=== PATIENT | female | born 1985 | race Caucasian/White ===

== ENCOUNTER 2018-08-27 22:06 | Emergency (ER) | payer MEDICAID ==
--- NOTE | 2018-08-27 22:20 | EDPHY ---
H & P Stated Complaint: Abdominal Pain X 2 Days Time Seen by Provider: 08/27/18 22:20 HPI/ROS: HPI CHIEF COMPLAINT: Right upper quadrant abdominal pain HISTORY OF PRESENT ILLNESS: This is a 32-year-old female presents emergency room with right upper quadrant abdominal pain. Patient's states this started . Describes right upper quadrant sharp stabbing. Worse when she takes deep breath in. She does not have her gallbladder any further. Denies any lower abdominal pain. Denies chest pain. Denies shortness of breath. Does complain of right upper quadrant pain when she takes deep breath in. Wraps around to her right back. No fever. Past Medical History: No significant history Past Surgical History: Thyroidectomy, cholecystectomy, bladder surgery Social History: Denies drugs alcohol tobacco. Visiting from [place]. Family History: Noncontributory ROS REVIEW OF SYSTEMS: 10 Systems were reviewed and negative with the exception of the elements mentioned in the history of present illness. Exam Constitutional triage nursing summary reviewed, vital signs reviewed, awake/ alert. Eyes normal conjunctivae and sclera, EOMI, PERRLA. HENT normal inspection, atraumatic, moist mucus membranes, no epistaxis, neck supple/ no meningismus, no raccoon eyes. Respiratory clear to auscultation bilaterally, normal breath sounds, no respiratory distress, no wheezing. Cardiovascular rate normal, regular rhythm, no murmur, no edema, distal pulses normal. Gastrointestinal nontender palpation right upper quadrant,, no rebound, no guarding, normal bowel sounds, no distension, no pulsatile mass. Genitourinary no CVA tenderness. Musculoskeletal no midline vertebral tenderness, full range of motion, no calf swelling, no tenderness of extremities, no meningismus, good pulses, neurovascularly intact. Skin pink, warm, & dry, no rash, skin atraumatic. Neurologic awake, alert and oriented x 3, AAOx3, moves all 4 extremities equally, motor intact, sensory intact, CN II-XII intact, normal cerebellar, normal vision, normal speech. Psychiatric normal mood/affect. Heme/Lymph/Immune no lymphadenopathy. Differential Diagnosis: Differential diagnosis includes but is not limited to and in no particular order: Bowel obstruction, appendicitis, gallbladder disease, diverticulitis, colitis, enteritis, perforated viscus, gastritis, GERD , esophagitis, urinary tract infection, pyelonephritis, kidney stones, including PE Medical Decision Making: IV establishment IV fluid bolus IV Dilaudid 1 mg for pain control IV Zofran for nausea, chest x-ray, D-dimer, troponin, LFTs, lipase , and re-evaluate. Re-evaluation: ED x-ray chest one view negative for acute cardiopulmonary disease. Patient's troponin 0.00 D-dimer negative. Urinalysis reviewed CT scan abdomen pelvis with IV contrast faxed to me at 12:37 a.m. This shows few prominent fluid-filled loops of the jejunum in left lower quadrant without associated discrete transition point suspect flexed mild focal enteritis or ileus low-grade obstruction is unlikely. 2 point cm right ovarian cyst pelvic ultrasound be considered further evaluate as clinically warranted. 0223: I did go reexamine the patient this time the patient is resting here comfortably no acute distress. She is feeling better with IV fluids and pain medicine. I do not have a great explanation for right upper quadrant abdominal pain she has no lower abdominal pain. Patient's troponin was negative negative D-dimer urinalysis shows no acute infraction. CT scan abdomen pelvis with IV contrast does not show any evidence of acute right upper quadrant abdominal pain. Possibly enteritis or ileus however the patient does not have a diarrhea. 0246: Patient on re-examination still has right upper quadrant abdominal pain. Unclear etiology. Labs reviewed Patient is from out of town. Plan will be for hospital admission for abdominal pain, overnight hydration re- evaluation 0250: I gave the nargis luis the option of going home or being admitted overnight for observation given that she is from out of town has ongoing abdominal pain she would like to be admitted. She has no lower abdominal pain. Pain is located right upper quadrant Spoke with the hospitalist service Dr. Whatley agrees to admit. Source: Patient - Personal History LMP (Females 10-55): 1-7 Days Ago Current Tetanus/Diphtheria Vaccine: Yes Current Tetanus Diphtheria and Acellular Pertussis (TDAP): Yes Tetanus Vaccine Date: < 10 years - Medical/Surgical History Hx Asthma: No Hx Chronic Respiratory Disease: No Hx Diabetes: No Hx Cardiac Disease: No Hx Renal Disease: No Hx Cirrhosis: No Hx Alcoholism: No Hx HIV/AIDS: No Hx Splenectomy or Spleen Trauma: No Other PMH: choly, wisdom teeth extracted, breast implants and removal of same, thyroidectomy, lap procedure for edometriosis, cystocele repair - Social History Smoking Status: Former smoker Constitutional: Initial Vital Signs Temperature (C) 36.8 C 08/27/18 22:10 Heart Rate 69 08/27/18 22:10 Respiratory Rate 16 08/27/18 22:10 Blood Pressure 128/86 H 08/27/18 22:10 O2 Sat (%) 98 08/27/18 22:10 O2 Delivery Mode Room Air Allergies/Adverse Reactions: acetaminophen [From Lortab] Allergy (Verified 08/27/18 22:15) hydrocodone [From Lortab] Allergy (Verified 08/27/18 22:15) Influenza Virus Vaccines Allergy (Verified 08/27/18 22:15) Home Medications: Medication Instructions Recorded AMOXICILLIN 08/27/18 Levothyroxine 08/27/18 Valtrex 08/27/18 Medical Decision Making - Diagnostics Imaging Results: Imaging Impressions Chest X-Ray 08/27/18 22:25 Impression: 1. No acute pulmonary disease. 2. Consider chest two views when the patient's medical condition permits. - Data Points Laboratory Results: Laboratory Results 08/27/18 22:25 08/27/18 22:25 08/27/18 08/27/18 08/27/18 23:26 22:49 22:25 WBC RBC Hgb Hct MCV MCH MCHC RDW Plt Count MPV Neut % (Auto) Lymph % (Auto) [place] % (Auto) Eos % (Auto) Baso % (Auto) Nucleat RBC Rel Count Absolute Neuts (auto) Absolute Lymphs (auto) Absolute Monos (auto) Absolute Eos (auto) Absolute Basos (auto) Absolute Nucleated RBC Immature Gran % Immature Gran # D-Dimer VBG Lactic Acid Sodium Potassium Chloride Carbon Dioxide Anion Gap BUN Creatinine Estimated GFR Glucose Calcium Total Bilirubin Conjugated Bilirubin Unconjugated Bilirubin AST ALT Alkaline Phosphatase POC Troponin I 0.00 ng/mL ng/mL (0.00-0.08) Total Protein Albumin Lipase Beta HCG, Qual NEGATIVE Urine Color YELLOW Urine Appearance CLEAR Urine pH 7.0 (5.0-7.5) Ur Specific [place] 1.015 (1.002-1.030) Urine Protein NEGATIVE (NEGATIVE) Urine Ketones NEGATIVE (NEGATIVE) Urine Blood 1+ H (NEGATIVE) Urine Nitrate NEGATIVE (NEGATIVE) Urine Bilirubin NEGATIVE (NEGATIVE) Urine Urobilinogen NEGATIVE EU EU (0.2-1.0) Ur Leukocyte Esterase NEGATIVE (NEGATIVE) Urine RBC 1-3 /hpf /hpf (0-3) Urine WBC 0-1 /hpf /hpf (0-3) Ur Epithelial Cells TRACE /lpf /lpf (NONE-1+) Urine Bacteria TRACE /hpf H /hpf (NONE SEEN) Urine Mucus TRACE /lpf /lpf (NONE-1+) Urine Glucose NEGATIVE (NEGATIVE) 08/27/18 08/27/18 08/27/18 22:25 22:25 22:25 WBC 6.90 10^3/uL 10^3/uL (3.80-9.50) RBC 4.34 10^6/uL 10^6/uL (4.18-5.33) Hgb 14.1 g/dL g/dL (12.6-16.3) Hct 42.2 % % (38.0-47.0) MCV 97.2 fL fL (81.5-99.8) MCH 32.5 pg pg (27.9-34.1) MCHC 33.4 g/dL g/dL (32.4-36.7) RDW 13.0 % % (11.5-15.2) Plt Count 276 10^3/uL 10^3/uL (150-400) MPV 9.1 fL fL (8.7-11.7) Neut % (Auto) 31.5 % L % (39.3-74.2) Lymph % (Auto) 51.7 % H % (15.0-45.0) [place] % (Auto) 10.7 % % (4.5-13.0) Eos % (Auto) 5.4 % % (0.6-7.6) Baso % (Auto) 0.6 % % (0.3-1.7) Nucleat RBC Rel Count 0.0 % % (0.0-0.2) Absolute Neuts (auto) 2.17 10^3/uL 10^3/uL (1.70-6.50) Absolute Lymphs (auto) 3.57 10^3/uL H 10^3/uL (1.00-3.00) Absolute Monos (auto) 0.74 10^3/uL 10^3/uL (0.30-0.80) Absolute Eos (auto) 0.37 10^3/uL 10^3/uL (0.03-0.40) Absolute Basos (auto) 0.04 10^3/uL 10^3/uL (0.02-0.10) Absolute Nucleated RBC 0.00 10^3/uL 10^3/uL (0-0.01) Immature Gran % 0.1 % % (0.0-1.1) Immature Gran # 0.01 10^3/uL 10^3/uL (0.00-0.10) D-Dimer 0.29 ug/mLFEU ug/mLFEU (0.00-0.50) VBG Lactic Acid Sodium 139 mEq/L mEq/L (135-145) Potassium 3.9 mEq/L mEq/L (3.5-5.2) Chloride 107 mEq/L mEq/L (97-110) Carbon Dioxide 25 mEq/l mEq/l (22-31) Anion Gap 7 mEq/L mEq/L (6-14) BUN 14 mg/dL mg/dL (7-23) Creatinine 0.9 mg/dL mg/dL (0.6-1.0) Estimated GFR > 60 Glucose 80 mg/dL mg/dL (70-100) Calcium 9.5 mg/dL mg/dL (8.5-10.4) Total Bilirubin 0.3 mg/dL mg/dL (0.1-1.4) Conjugated Bilirubin 0.3 mg/dL mg/dL (0.0-0.5) Unconjugated Bilirubin 0.0 mg/dL mg/dL (0.0-1.1) AST 29 IU/L IU/L (14-46) ALT 36 IU/L IU/L (9-52) Alkaline Phosphatase 62 IU/L IU/L (38-126) POC Troponin I Total Protein 7.1 g/dL g/dL (6.3-8.2) Albumin 4.3 g/dL g/dL (3.5-5.0) Lipase 148 IU/L IU/L (23-300) Beta HCG, Qual Urine Color Urine Appearance Urine pH Ur Specific [place] Urine Protein Urine Ketones Urine Blood Urine Nitrate Urine Bilirubin Urine Urobilinogen Ur Leukocyte Esterase Urine RBC Urine WBC Ur Epithelial Cells Urine Bacteria Urine Mucus Urine Glucose 08/27/18 22:25 WBC RBC Hgb Hct MCV MCH MCHC RDW Plt Count MPV Neut % (Auto) Lymph % (Auto) [place] % (Auto) Eos % (Auto) Baso % (Auto) Nucleat RBC Rel Count Absolute Neuts (auto) Absolute Lymphs (auto) Absolute Monos (auto) Absolute Eos (auto) Absolute Basos (auto) Absolute Nucleated RBC Immature Gran % Immature Gran # D-Dimer VBG Lactic Acid 1.1 mmol/L mmol/L (0.7-2.1) Sodium Potassium Chloride Carbon Dioxide Anion Gap BUN Creatinine Estimated GFR Glucose Calcium Total Bilirubin Conjugated Bilirubin Unconjugated Bilirubin AST ALT Alkaline Phosphatase POC Troponin I Total Protein Albumin Lipase Beta HCG, Qual Urine Color Urine Appearance Urine pH Ur Specific [place] Urine Protein Urine Ketones Urine Blood Urine Nitrate Urine Bilirubin Urine Urobilinogen Ur Leukocyte Esterase Urine RBC Urine WBC Ur Epithelial Cells Urine Bacteria Urine Mucus Urine Glucose Medications Given: Discontinued Medications Famotidine (Pepcid) 20 mg IVP EDNOW ONE Stop: 08/27/18 23:25 Last Admin: 08/27/18 23:28 Dose: 20 mg Hydromorphone HCl (Dilaudid) 1 mg IVP EDNOW ONE Stop: 08/27/18 22:26 Last Admin: 08/27/18 22:32 Dose: 1 mg Hydromorphone HCl (Dilaudid) 1 mg IVP EDNOW ONE Stop: 08/27/18 22:30 Last Admin: 08/27/18 22:30 Dose: Not Given Sodium Chloride (Ns) 1,000 mls @ 0 mls/hr IV EDNOW ONE; Wide Open PRN Reason: Protocol Stop: 08/27/18 22:26 Last Admin: 08/27/18 22:27 Dose: 1,000 mls Sodium Chloride (Ns) 1,000 mls @ 0 mls/hr IV ONCE ONE PRN Reason: Wide Open Stop: 08/27/18 23:25 Last Admin: 08/27/18 23:28 Dose: 1,000 mls Ondansetron HCl (Zofran) 4 mg IVP EDNOW ONE Stop: 08/27/18 22:26 Last Admin: 08/27/18 22:31 Dose: 4 mg Point of Care Test Results: Chemistry 08/27/18 23:26 POC Troponin I 0.00 ng/mL ng/mL (0.00-0.08) Departure - Departure Disposition: [facility] Acute Clinical Impression: Abdominal pain Qualifiers: Abdominal location: unspecified location Qualified Code(s): R10.9 - Unspecified abdominal pain Condition: Fair Referrals: SANTA BOWMAN DO [Other] - As per Instructions
[2018-08-27] MEDS ORDERED: ONDANSETRON 4 MG/2 ML VIAL IVP ONE (22:25)
[2018-08-27] MEDS ORDERED: NS 1,000 ML IV ONE ×2 (22:25→23:24)
[2018-08-27] MEDS ORDERED: HYDROmorphONE/DILAUDID 2 MG/ML INJ IVP ONE ×2 (22:25→22:29)
[2018-08-27] MEDS ORDERED: HYDROmorphONE/DILAUDID 1 MG/ML INJ ONE (22:29)
[2018-08-27 22:42] LABS: PLATELET COUNT 276 10^3/uL (150-400)
[2018-08-27] MEDS ORDERED: FAMOTIDINE 20 MG/2 ML SDV IVP ONE (23:24)
[2018-08-27] MEDS ORDERED: IOHEXOL 300 mgI/ML (OMNIPAQUE) 150 ML BTL IV ONE (23:32)
[2018-08-28] MEDS ORDERED: LORazepam 0.5 MG TAB PO PRN (03:13)
[2018-08-28] MEDS ORDERED: ONDANSETRON 4 MG/2 ML VIAL IVP PRN (03:13)
[2018-08-28] MEDS ORDERED: ONDANSETRON DISINTEGRATING 4 MG TAB PO PRN (03:13)
[2018-08-28 03:45] VITALS: BP 112/72
--- NOTE | 2018-08-28 04:08 | PDGENHP ---
History and Physical - Chief Complaint RUQ abdominal pain - History of Present Illness Source-patient provides history appears reliable. EMR was reviewed and case discussed with ED provider. HPI - pleasant 32-year-old female with past medical history significant for endometriosis, iatrogenic hypothyroidism who presents emergency department today with complaints of several days of right upper quadrant abdominal pain and nausea. Patient denies any fevers but has had some issues with temperature instability following her thyroidectomy. She said declined appetite since (4 days ago) and associated nausea but no vomiting. Patient has not had any diarrhea. Her last bowel movement was normal 1 day ago. Patient reports that she is currently on her menstrual cycle and has had some lower abdominal bloating which is typical at this time. Patient complains of right upper quadrant abdominal aching and pleuritic-type pain. Worse with sitting for extended periods better with standing. Patient also reports some shortness of air due to pain with breathing. She reports noticing some very mild scleral icterus at the beginning of her symptoms but this has resolved. She denies any jaundice. History Information - Allergies/Home Medication List Allergies/Adverse Reactions: hydrocodone [From Lortab] Allergy (Verified 08/27/18 22:15) Influenza Virus Vaccines Adverse Reaction (Mild, Verified 08/28/18 04:08) Abdominal Cramping Home Medications: AMOXICILLIN 08/27/18 [Last Taken Unknown] Levothyroxine 08/27/18 [Last Taken Unknown] Valtrex 08/27/18 [Last Taken Unknown] I have personally reviewed and updated: family history, medical history, social history, surgical history - Past Medical History Additional medical history: Iatrogenic hypothyroidism status post thyroidectomy. General herpes. History MRSA 2011. Endometriosis s/p resection - Surgical History Additional surgical history: Cholecystectomy. [place] tooth extraction. Mammoplasty with removal of implants. Thyroidectomy. Laparoscopic ablation of endometriosis. Cystocele repair - Family History Additional family history: Negative for GI disorders. - Social History Smoking Status: Former smoker Alcohol Use: None Drug Use: None Review of Systems Review of Systems: ROS: 10pt was reviewed & negative except for what was stated in HPI & below Constitutional: Reports: other (Temperature changes related to hypothyroidism.) EENMT: Reports: no symptoms Cardiac: Reports: edema (With traveling) Respiratory: Reports: shortness of breath (With inspiration due to pain.) Gastrointestinal: Reports: abdominal pain (See HPI), abdominal distention (Blood ), nausea. Denies: vomitting, black stools, rectal bleeding, diarrhea Genitourinary: Denies: dysuria, hematuria Muscolosketal: Reports: no symptoms Skin: Reports: no symptoms Neurological: Reports: no symptoms Hematologic/Lymphatic: Reports: no symptoms Physical Exam Physical Exam: Selected Entries 08/27/18 22:10 Blood Pressure Automatic Method Heart Rate 69 Respiratory 16 Rate O2 Sat (%) 98 Temperature (C) 36.8 C Blood Pressure 128/86 H Mean Arterial 100 Pressure (MAP) O2 Delivery Room Air Mode Temperature Oral Source Temp Pulse Resp BP Pulse Ox 36.9 C 54 L 18 112/72 97 08/28/18 03:45 08/28/18 03:45 08/28/18 03:45 08/28/18 03:45 08/28/18 03:45 Constitutional: no apparent distress, uncomfortable, other (NAD. Pleasant adult female is lying quietly in bed. Appears fatigued. ) Eyes: PERRL (Slightly decreased reactivity light bilaterally but symmetric), anicteric sclera, EOMI (Grossly normal), No scleral injection Ears, Nose, Mouth, Throat: moist mucous membranes, No poor dentition Cardiovascular: regular rate and rhythym, no murmur, rub, or gallop, pulses symmetric bilaterally, No edema Peripheral Pulses: 1+: dorsalis-pedis (R), dorsalis-pedis (L) Respiratory: no respiratory distress, no rales or rhonchi, clear to auscultation , No respiratory distress Gastrointestinal: no palpable masses, tenderness, other (Hypoactive bowel sounds , soft abdomen. Tenderness right upper abdomen radiating around into the right lateral chest), No gao's sign, No guarding, No rebound, No distension Genitourinary: no bladder tenderness, No sales in urethra Skin: warm, other ([place]) Musculoskeletal: No generalized weakness (Patient sits up independently. Moves all extremities.) Neurologic: AAOx3, sensation intact bilaterally, other (Grossly normal exam.), No facial droop Psychiatric: interacting appropriately, not encephalopathic, thought process linear, flat affect (Patient appears uncomfortable and fatigued.) Lab Data & Imaging Review 08/27/18 22:25 08/27/18 22:25 WBC 6.90 10^3/uL (3.80-9.50) 08/27/18 22: RBC 4.34 10^6/uL (4.18-5.33) 08/27/18 22: Hgb 14.1 g/dL (12.6-16.3) 08/27/18 22: Hct 42.2 % (38.0-47.0) 08/27/18 22:25 MCV 97.2 fL (81.5-99.8) 08/27/18 22: MCH 32.5 pg (27.9-34.1) 08/27/18 22: MCHC 33.4 g/dL (32.4-36.7) 08/27/18: RDW 13.0 % (11.5-15.2) 08/27/18: Plt Count 276 10^3/uL (150-400) 08/27/18: MPV 9.1 fL (8.7-11.7) 08/27/18: Neut % (Auto) 31.5 % (39.3-74.2) L 08/27/18: Lymph % (Auto) 51.7 % (15.0-45.0) H 08/27/18: [place] % (Auto) 10.7 % (4.5-13.0) 08/27/18: Eos % (Auto) 5.4 % (0.6-7.6) 08/27/18: Baso % (Auto) 0.6 % (0.3-1.7) 08/27/18: Nucleat RBC Rel Count 0.0 % (0.0-0.2) 08/27/18: Absolute Neuts (auto) 2.17 10^3/uL (1.70-6.50) 08/27/18: Absolute Lymphs (auto) 3.57 10^3/uL (1.00-3.00) H 08/27/18: Absolute Monos (auto) 0.74 10^3/uL (0.30-0.80) 08/27/18: Absolute Eos (auto) 0.37 10^3/uL (0.03-0.40) 02/03/19 22:25 Absolute Basos (auto) 0.04 10^3/uL (0.02-0.10) 08/27/18 22:25 Absolute Nucleated RBC 0.00 10^3/uL (0-0.01) 08/27/18 22:25 Immature Gran % 0.1 % (0.0-1.1) 08/27/18 22:25 Immature Gran # 0.01 10^3/uL (0.00-0.10) 08/27/18 22:25 D-Dimer 0.29 ug/mLFEU (0.00-0.50) 08/27/18 22:25 VBG Lactic Acid 1.1 mmol/L (0.7-2.1) 08/27/18 22:25 Sodium 139 mEq/L (135-145) 08/27/18 22:25 Potassium 3.9 mEq/L (3.5-5.2) 08/27/18 22:25 Chloride 107 mEq/L (97-110) 08/27/18 22:25 Carbon Dioxide 25 mEq/l (22-31) 08/27/18 22:25 Anion Gap 7 mEq/L (6-14) 08/27/18 22:25 BUN 14 mg/dL (7-23) 08/27/18 22:25 Creatinine 0.9 mg/dL (0.6-1.0) 08/27/18 22:25 Estimated GFR > 60 08/27/18 22:25 Glucose 80 mg/dL (70-100) 08/27/18 22:25 Calcium 9.5 mg/dL (8.5-10.4) 08/27/18 22:25 Total Bilirubin 0.3 mg/dL (0.1-1.4) 08/27/18 22:25 Conjugated Bilirubin 0.3 mg/dL (0.0-0.5) 08/27/18 22:25 Unconjugated Bilirubin 0.0 mg/dL (0.0-1.1) 08/27/18 22:25 AST 29 IU/L (14-46) 08/27/18 22:25 ALT 36 IU/L (9-52) 08/27/18 22:25 Alkaline Phosphatase 62 IU/L (38-126) 08/27/18 22:25 POC Troponin I 0.00 ng/mL (0.00-0.08) 08/27/18 23:26 Total Protein 7.1 g/dL (6.3-8.2) 08/27/18 22:25 Albumin 4.3 g/dL (3.5-5.0) 08/27/18 22:25 Lipase 148 IU/L (23-300) 08/27/18 22:25 Beta HCG, Qual NEGATIVE 08/27/18 22:25 Urine Color YELLOW 08/27/18 22:49 Urine Appearance CLEAR 08/27/18 22:49 Urine pH 7.0 (5.0-7.5) 08/27/18 22:49 Ur Specific [place] 1.015 (1.002-1.030) 08/27/18 22:49 Urine Protein NEGATIVE (NEGATIVE) 08/27/18 22:49 Urine Ketones NEGATIVE (NEGATIVE) 08/27/18 22:49 Urine Blood 1+ (NEGATIVE) H 08/27/18 22:49 Urine Nitrate NEGATIVE (NEGATIVE) 08/27/18 22:49 Urine Bilirubin NEGATIVE (NEGATIVE) 08/27/18 22:49 Urine Urobilinogen NEGATIVE EU (0.2-1.0) 08/27/18 22:49 Ur Leukocyte Esterase NEGATIVE (NEGATIVE) 08/27/18 22:49 Urine RBC 1-3 /hpf (0-3) 08/27/18 22:49 Urine WBC 0-1 /hpf (0-3) 08/27/18 22:49 Ur Epithelial Cells TRACE /lpf (NONE-1+) 08/27/18 22:49 Urine Bacteria TRACE /hpf (NONE SEEN) H 08/27/18 22:49 Urine Mucus TRACE /lpf (NONE-1+) 08/27/18 22:49 Urine Glucose NEGATIVE (NEGATIVE) 08/27/18 22:49 Imaging Review: Chest, One View Portable at 2238 hours History: RUQ PAIN . Comparison: None. Findings: Cardiac silhouette is normal in size. No pneumonia, congestive heart failure, pleural effusion, or pneumothorax. Impression: 1. No acute pulmonary disease. 2. Consider chest two views when the patient's medical condition permits. Dictated By: Dontae Álvarez CT abdomen/pelvis Preliminary report reviewed. Few prominent fluid-filled loops of the jejunum left lower quadrant without discrete transition point. Mild focal enteritis versus ileus. 2.1 cm right ovarian cyst. Visualized and Interpreted Chest x-ray results: Yes Assessment & Plan Assessment: 32-year-old female with history of iatrogenic hypothyroidism, endometriosis who presents emergency department with complaints of several days of abdominal distension and right upper quadrant abdominal/pleuritic pain #Abdominal pain (Acute) - unclear cause of patient's right upper quadrant abdominal pain. Patient describes a pleuritic type component. ddx - alissa hepatitis vs. Musculoskeletal/intercostal vs atypical presentation of enteritis or ileus (noted on CT in LLQ) vs diaphragm dysfunction. Patient is status post cholecystectomy. LFTs are within normal limits. I did ask her regarding any possibility for STI including gonorrhea chlamydia. Patient reports that she was previously tested negative and not sexually active. She does express some concerns regarding diaphragmatic pain which has been initial in the past. Her CT abdomen pelvis was significant only for left lower quadrant jejunal enteritis versus ileus. I did review the findings with the patient as well as noted her normal labs. Patient's D-dimer was negative. Chest x-ray unremarkable. Remainder of laboratory studies was negative. Given there is no acute finding patient was offered the option for admission for additional pain control and monitoring in setting of jejunal enteritis versus ileus and bowel rest versus discharge home. Patient reports that she has a flight scheduled for later this morning. A note was offered so that patient could delay her flight however patient opted to be discharged. Discharge instructions were given to the patient myself regarding her symptoms and findings. Encouraged her to consider a liquid diet and monitor for any absence of passage of gas or for BM. Advised patient to go to the local ED when she arrives at her destination for any worsening abdominal pain, distention, fevers , absence of flatus or BM. #2.1 cm ovarian cyst - patient is currently on her menses in this is likely physiologic. # nausea - patient reports that she has a prescription for Phenergan when she arrives home. Patient discharged from the emergency department before admission as patient had requested discharge instead of admission.
[2018-08-28] MEDS ORDERED: HYDROGEN PEROXIDE 236 ML BOTTLE TP ONE (08:51)
== END 2018-08-28 04:14 | disposition home or self-care (01) ==
LOC: UNDOADMOB 08-28 02:49
DX: R10.11 Right upper quadrant pain (principal); E86.9 Volume depletion, unspecified
CPT/HCPCS: 84484-ER; 96374; J1170; J2405; Q9967